=== PATIENT | male | born 1950 | race Caucasian/White ===

== ENCOUNTER → 2019-09-04 | Outpatient (CLI) | payer BC ==
--- NOTE | 2019-09-07 09:27 | PCVCIMAG ---
APPROVED REPORT Study performed: 09/04/2019 13:47:12 Exam: Stress Echocardiogram Indication: elevated coronary calcium score, htn, near syncope, hlp Patient Location: Echo lab Stress Nurse: Talia Louis RN Status: routine Ht: 5 ft 9 in HR: 72 bpm BP: 128/80 mmHg Rhythm: NSR Procedure The patient underwent an Exercise Stress Test using the José Protocol. Blood pressure, heart rate, and EKG were monitored. An Echocardiogram was performed by traffic engineering technician in four stages in quad fashion. At peak stress, four selected images were obtained and placed side by side with resting images for comparison. Stress Test Details Stress Test: Exercise stress testing was performed using a José protocol. HR Resting HR: 72 bpmMax Heart Rate (APMHR): 153 bpm Max HR Achieved: 150 bpmTarget HR (85% APMHR): 130 bpm % of APMHR: 98 Recovery HR: 92 bpm HR response to stress: Normal HR response to stress BP Resting BP: 128/80 mmHg Max BP: 182/72 mmHg Recovery BP: 140/66 mmHg BP response to stress: Normal blood pressure response to stress. ECG Resting ECG: Sinus Rhythm Stress ECG: Sinus Rhythm ST Change: Normal Maximum ST Deviation: 0.5 mm Arrhythmia: rare PVC Recovery ECG: Sinus Rhythm Recovery ST Change: Normal Recovery ST Deviation: 0 mm Recovery Arrhythmia: None Clinical Reason for Termination: Maximal effort, Dyspnea Stress Symptoms: Dyspnea Exercise duration: 8 min 4 sec Highest Stage Achieved: Stage 3: 3.4 mph at 14% grade. Exercise capacity: 10.1 METs Overall Exercise Capacity for Age: Normal Scale: Sedentary Angina Score: None Stress ECG Conclusion Clinical: Non-ischemic Miller Treadmill Score is 5.5 which is Low risk. Pre-Stress Echo The resting Echocardiogram showed normal left ventricular contractility with an estimated Ejection Fraction of about >55%. The resting echocardiogram demonstrated normal wall motion in all wall segments. Post-Stress Echo The stress Echocardiogram showed normal left ventricular contractility with an estimated Ejection Fraction of about 65%. Compared to rest, there were no stress-induced wall motion abnormalities. Clinical No clinical or ECG evidence for ischemia. Conclusion Clinical Response: Non-ischemic Exercise Capacity: Average Stress ECG Response: Equivocal Stress Echo Images: Non-ischemic The left ventricle is normal in size and wall thickness in both the rest and stress images. Mild mitral regurgitation. Mild tricuspid regurgitation with PAP of 33 mmHg. Normal aortic and pulmonic valves. No valvular stenosis present. Normal stress echocardiogram with maximal exercise stress. Other Information Study Quality: Adequate <Conclusion> The left ventricle is normal in size and wall thickness in both the rest and stress images. Mild mitral regurgitation. Mild tricuspid regurgitation with PAP of 33 mmHg. Normal aortic and pulmonic valves. No valvular stenosis present. Normal stress echocardiogram with maximal exercise stress.
== END | disposition home or self-care (01) ==
LOC: PCVCIMAG 14:09
PROVIDERS: ATTEND Internal Medicine
DX: I08.1 Rheumatic disorders of both mitral and tricuspid valves (principal); E78.00 Pure hypercholesterolemia, unspecified; I10 Essential (primary) hypertension; Z92.89 Personal history of other medical treatment; Z90.49 Acquired absence of other specified parts of digestive tract; Z82.49 Family history of ischemic heart disease and other diseases of the circulatory system
CPT/HCPCS: 93325; 93351